=== PATIENT | male | born 1935 | race Caucasian/White ===

== ENCOUNTER 2017-05-05 10:50 | Emergency (ER) | payer OTHER ==
[~2017-05-05] VITALS: Ht 170.2 cm; Wt 81.8 kg
[2017-05-05 10:50] VITALS: Ht 170.2 cm; Wt 81.8 kg
[2017-05-05] MEDS ORDERED: SOD CHLORIDE 0.9% 1,000 ML IV STA (10:51)
[2017-05-05 11:53] LABS: ADD SCAN DIFF NO
[2017-05-05] MEDS ORDERED: TAMS-14 PO (11:58)
[2017-05-05] MEDS ORDERED: METO5TAB65 PO (11:58)
[2017-05-05] MEDS ORDERED: ACAR50TA PO (11:59)
[2017-05-05] MEDS ORDERED: MECL-77 PO (11:59)
[2017-05-05] MEDS ORDERED: METO200T4 PO (12:01)
[2017-05-05] MEDS ORDERED: BACL10TA PO (12:01)
[2017-05-05] MEDS ORDERED: ASPI-664 PO (12:01)
--- NOTE | 2017-05-05 12:01 | RADRPT ---
PROCEDURE: XR Chest. CLINICAL INDICATION: Possible stroke. TECHNIQUE: Single frontal view of the chest was obtained. COMPARISON: None FINDINGS: The soft tissues are normal. There are degenerative osteophytes in the thoracic spine. The left ve ntricle is borderline enlarged. The cardiomediastinal silhouette and hilar structures are normal. T he pulmonary vasculature is normal. There are vascular calcifications and mild ectasia of the left- sided thoracic aorta. There is a suboptimal inspiration with compressive atelectasis in the bases of the lungs. There is a plate-like density in the lower periphery of the right upper lobe. No acute infiltrate is identified. The costophrenic angles are normal. IMPRESSION: 1. Atherosclerosis ectasia of the thoracic aorta. 2. There is no evidence of active cardiopulmonary disease. 3. There is plate-like atelectasis in the lower periphery of the right upper lobe. RPTAT:AAJJ Physician Shannon Date Time Electronically viewed and signed by Rodrick Valeinte Physician on 05/05/2017 12:01 SHAY/
[2017-05-05] MEDS ORDERED: FURO-109 PO (12:02)
--- NOTE | 2017-05-05 12:02 | RADRPT ---
PROCEDURE: CT Brain without contrast. CLINICAL INDICATION: Neurologic deficit TECHNIQUE: A CT of the brain was performed on multidetector high-resolution CT scanner utilizing a xial sections from the skull base through the vertex without contrast. One or more of the following dose reduction techniques were used: Automated exposure control, Adjustment of the mA and/or kV acc ording to patient size, and/or use of iterative reconstruction technique. DOSE: CTDI = 44 mGy and the DLP = 720 mGy-cm. COMPARISON: None available FINDINGS: No acute intracranial hemorrhage, significant mass effect or midline shift. Patchy hypoattenuation o f the cerebral white matter is compatible with chronic microvascular ischemic changes. Vascular calc ifications. Prominence of the cortical sulci and ventricles are related to mild cerebral volume los s. No significant opacification of the visualized paranasal sinuses or mastoids. IMPRESSION: No acute intracranial hemorrhage or mass effect. Chronic microvascular disease and intracranial atherosclerosis. If warranted, consider MRI for further evaluation. RPTAT: AA .Zev Kaplan MD, MD Date Time Electronically viewed and signed by .Zev Kaplan MD, MD on 05/05/2017 12:02 .T/
[2017-05-05] MEDS ORDERED: MELO-109 PO (12:03)
[2017-05-05] MEDS ORDERED: GLU5XL PO (12:03)
[2017-05-05] MEDS ORDERED: LOSA50TA6 PO (12:03)
[2017-05-05] MEDS ORDERED: CLOP75TA27 PO (12:04)
[2017-05-05] MEDS ORDERED: METF500T4 PO (12:04)
[2017-05-05] MEDS ORDERED: SIMV40TA2 PO (12:05)
[2017-05-05] MEDS ORDERED: CALC1TAB79 PO (12:06)
[2017-05-05] MEDS ORDERED: MULTI PO (12:07)
[2017-05-05 12:17] LABS: ANION GAP 16 (8-16); BLOOD UREA NITROGEN 53 mg/dl (7-20); CARBON DIOXIDE 23 mmol/L (21-31); CHLORIDE 101 mmol/L (97-110); CREATININE 3.45 mg/dl (0.61-1.24); GLUCOSE 288 mg/dl (70-220); SODIUM 135 mmol/L (135-144)
[2017-05-05 12:34] LABS: PROTIME 13.2 Sec (12.2-14.2)
[2017-05-05 12:35] LABS: PARTIAL THROMBOPLASTIN TIME 32.9 Sec (25.0-35.0)
[2017-05-05 12:37] LABS: TROPONIN-I < 0.012 ng/ml (0.00-0.12)
--- NOTE | 2017-05-05 14:12 | ERA ---
ER Documentation Chief Complaint Date/Time DATE: 05/05/17 TIME: 14:12 Chief Complaint [id number],weakness since yesterday, very fatigue with normal activity HPI Patient is an 81-year-old male with coronary disease, hypertension, and diabetes who presents with weakness. Please note the history and physical exam is limited secondary to the patient's mental status. The patient was brought in by ambulance. He had a fall yesterday. He has "no energy" per the granddaughter. He tried to drink coffee today but was still weak and dropped out of his hand and spilled onto himself. Upon review of old medical records there is no previous visits to the emergency department. His primary doctor is in [place] and the family does not know the name. ROS All systems reviewed and are negative except as per history of present illness. Medications Home Meds Reported Medications Multivitamins* (Theragran*) 1 Tab Tab, 1 TAB PO DAILY, TAB 05/05/17 Calcium Carbonate/Vitamin D3 (Oysco 500+D Tablet) 1 Each Tablet, 1 EACH PO DAILY , TAB 05/05/17 Simvastatin* (Zocor*) 40 Mg Tablet, 40 MG PO QHS, #30 TAB 05/05/17 Clopidogrel Bisulfate (Clopidogrel) 75 Mg Tablet, 75 MG PO DAILY, #30 TAB 05/05/17 Metformin Hcl* (Metformin Hcl*) 500 Mg Tablet, 500 MG PO WITH BREAKFAST DINNE, # 30 TAB 05/05/17 Losartan Potassium* (Losartan Potassium*) 50 Mg Tablet, 50 MG PO DAILY, TAB 05/05/17 Meloxicam* (Meloxicam*) 7.5 Mg Tablet, 7.5 MG PO DAILY, #30 TAB 05/05/17 Glipizide XL* (Glipizide XL*) 5 Mg Tabsr, 10 MG PO BID, TAB 05/05/17 Furosemide* (Lasix*) 40 Mg Tablet, 40 MG PO BID, TAB 05/05/17 Aspirin (Low Dose Aspirin) 81 Mg Tablet.dr, 81 MG PO DAILY, #30 TAB 05/05/17 Metoprolol Succinate* (Toprol XL*) 200 Mg Tab.sr.24h, 200 MG PO DAILY, #30 TAB 05/05/17 Baclofen* (Baclofen*) 10 Mg Tablet, 10 MG PO QHS, TAB 05/05/17 Meclizine Hcl* (Meclizine Hcl*) 25 Mg Tablet, 25 MG PO BID Y for DIZZINESS, TAB 05/05/17 Acarbose* (Precose*) 50 Mg Tablet, 50 MG PO WITH MEALS, TAB 05/05/17 Tamsulosin Hcl* (Flomax*) 0.4 Mg Cap.er.24h, 0.4 MG PO DAILY, CAP 05/05/17 Metolazone* (Metolazone*) 5 Mg Tablet, 5 MG PO DAILY, TAB 05/05/17 Allergies Allergies: Coded Allergies: Penicillins (Unverified Allergy, Unknown, RESULT OF A SKIN TEST, 05/05/17) PMhx/Soc History of Surgery: Yes (Bilateral knee surgery.) Anesthesia Reaction: No Hx Neurological Disorder: No Hx Respiratory Disorders: No Hx Cardiac Disorders: Yes (HTN, Hyperlipidemia) Hx Psychiatric Problems: No Hx Miscellaneous Medical Probl: Yes (Diabetes, Vertigo, BPH) Hx Alcohol Use: No Hx Substance Use: No Hx Tobacco Use: No Smoking Status: Never smoker FmHx Family History: No diabetes Physical Exam Vitals Vital Signs Date Time Temp Pulse Resp B/P Pulse Ox O2 Delivery O2 Flow Rate FiO2 05/05/17 14:07 61 18 146/58 Room Air 05/05/17 10:54 0 05/05/17 10:50 98.7 57 18 157/69 98 Physical Exam Const: Diffuse weakness Head: Atraumatic Eyes: Normal Conjunctiva ENT: Normal External Ears, Nose and Mouth. Neck: Full range of motion..~ No meningismus. Resp: Clear to auscultation bilaterally Cardio: Regular rate and rhythm, no murmurs Abd: Soft, non tender, non distended. Normal bowel sounds Skin: No petechiae or rashes Back: No midline or flank tenderness Ext: No cyanosis, or edema Neur: Awake with diffuse weakness, no focal deficits noted Result Diagram: 05/05/17 1115 Results 24 hrs Laboratory Tests Test 05/05/17 11:15 Prothrombin Time 13.2Sec Prothrombin Time Ratio 1.0 INR International Normalized Ratio 1.00 Activated Partial Thromboplast Time 32.9Sec Sodium Level 135mmol/L Potassium Level 5.0mmol/L Chloride Level 101mmol/L Carbon Dioxide Level 23mmol/L Anion Gap 16 Blood Urea Nitrogen 53mg/dl Creatinine 3.45mg/dl Glucose Level 288mg/dl Hemoglobin A1c 9.0% Calcium Level 9.0mg/dl Ammonia < 0umol/l Troponin I < 0.012ng/ml Current Medications Medications (Trade) Dose Ordered Sig/Preet Route PRN Reason Start Time Stop Time Status Last Admin Dose Admin Sodium Chloride (NS) 1,000 ml @ 1,000 mls/hr Q1H STAT IV 05/05/17 10:51 05/05/17 11:54 DC 05/05/17 10:51 Aspirin (Aspirin) 300 mg ONCE ONCE OR 05/05/17 14:30 05/05/17 14:31 UNV Procedures/MDM EKG read by me: Rate/Rhythm: Sinus bradycardia at a rate of 57 Intervals: Normal Impression: Bradycardia without ischemia CT brain negative for intracranial hemorrhage or mass per radiology. PROCEDURE: XR Chest. CLINICAL INDICATION: Possible stroke. TECHNIQUE: Single frontal view of the chest was obtained. COMPARISON: None FINDINGS: The soft tissues are normal. There are degenerative osteophytes in the thoracic spine. The left ventricle is borderline enlarged. The cardiomediastinal silhouette and hilar structures are normal. The pulmonary vasculature is normal. There are vascular calcifications and mild ectasia of the left-sided thoracic aorta. There is a suboptimal inspiration with compressive atelectasis in the bases of the lungs. There is a plate-like density in the lower periphery of the right upper lobe. No acute infiltrate is identified. The costophrenic angles are normal. IMPRESSION: 1. Atherosclerosis ectasia of the thoracic aorta. 2. There is no evidence of active cardiopulmonary disease. 3. There is plate-like atelectasis in the lower periphery of the right upper lobe. RPTAT:AAJJ Physician Shannon Date Time Electronically viewed and signed by Physician Shannon on 05/05/2017 12:01 Patient is an 81-year-old male who presents with weakness. There is no obvious focal weakness. He was found to have an elevated BUN and creatinine and I will have to assume that this is new onset as I do not have an old creatinine to compare to. This could be the cause of his weakness as well. However there is also possibility of occult stroke and so the patient had an NIH stroke scale and bedside swallow evaluation performed. He was given rectal aspirin. I spoke with Dr. Dow from [facility] who will accept the patient in transfer and will arrange transfer based on the insurance of the patient. The patient will require admission to a telemetry bed. He is outside the window for TPA. He has hyperglycemia without signs of diabetic ketoacidosis. Critical Care: Time: 35 minutes excluding all billable procedures. Treatments/Evaluations: Close monitoring and treatment of unstable vital signs, cardiorespiratory, and neurologic status, while maintaining tight balance of fluid, respiratory, and cardiac interventions. Departure Diagnosis: Primary Impression: ARF (acute renal failure) Qualified Code: N17.9 - Acute renal failure, unspecified acute renal failure type Additional Impression: Acute weakness Condition: MICHEAL Butler MD May 05, 2017 14:12
[2017-05-05 14:19] LABS: BASOPHILS % 0.3 % (0.0-2.0); HEMATOCRIT 31.2 % (42.0-52.0); HEMOGLOBIN 9.9 g/dl (14.0-18.0); LYMPHOCYTES % 21.9 % (15.0-51.0); MEAN CORPUSCULAR HEMOGLOBIN 28.3 pg (29.0-33.0); MEAN CORPUSCULAR HGB CONC 31.7 g/dl (32.0-37.0); MEAN CORPUSCULAR VOLUME 89.1 fl (82.0-101.0); MEAN PLATELET VOLUME 10.5 fl (7.4-10.4); MONOCYTES % 7.3 % (0.0-11.0); NEUTROPHIL # 5.7 10^3/ul (1.6-7.5); PLATELET COUNT 225 10^3/UL (140-440); WHITE BLOOD COUNT 8.8 10^3/ul (4.8-10.8)
[2017-05-05 14:20] LABS: EOSINOPHILS # 0.4 10^3/ul (0.0-0.5); LYMPHOCYTES # 1.9 10^3/ul (0.8-2.9); MONOCYTE # 0.6 10^3/ul (0.3-0.9)
[2017-05-05] MEDS ORDERED: ASPIRIN 300 MG SUPP PR ONE (14:30)
[2017-05-05 17:08] VITALS: BP 146/58; PULSE 57; RESP 18; TEMP 98.1
== END 2017-05-05 17:08 | disposition short-term general hospital (02) ==
LOC: E/R 10:50
DX: N17.9 Acute kidney failure, unspecified (principal); I25.10 Atherosclerotic heart disease of native coronary artery without angina pectoris; I10 Essential (primary) hypertension; E11.9 Type 2 diabetes mellitus without complications; R93.0 Abnormal findings on diagnostic imaging of skull and head, not elsewhere classified; Z79.82 Long term (current) use of aspirin; Z79.84 Long term (current) use of oral hypoglycemic drugs
CPT/HCPCS: 36415; 70450; 71010; 80048; 82140; 83036; 84484; 85025; 85610; 85730; 93005; 99291; J7030

== ENCOUNTER 2018-09-21 02:13 | Emergency (ER) | END 2018-09-21 10:38 | disposition short-term general hospital (02) ==